=== PATIENT | female | born 1995 | race Hispanic/Latino ===

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

== ENCOUNTER 2018-07-27 23:54 | Emergency (ER) | payer MEDICAID | END 2018-07-28 04:45 | LOC: ED 23:54 | DX: M54.9 Dorsalgia, unspecified (principal); Z53.21 Procedure and treatment not carried out due to patient leaving prior to being seen by health care provider ==

== ENCOUNTER 2018-11-07 01:57 | Inpatient (IN) | payer MEDICAID ==
--- NOTE | 2018-11-07 02:32 | Emergency Department Report ---
ED General Adult HPI - General Chief complaint: Dyspnea/Respdistress Stated complaint: CHEST PAIN/SOB/DIZZINESS Time Seen by Provider: 11/07/18 02:30 Source: patient Mode of arrival: Ambulatory Limitations: No Limitations - History of Present Illness Initial comments: 22-year-old female with history of obesity, retention, ADHD with no prior respiratory issues. The patient presents with complaint of chest pain with cough. Patient states she had difficulty breathing since yesterday evening. Patient also describes shortness of breath with exertional activity. Patient denies any history of PE or DVT or any recent long trips. Patient denies any productive component to her cough. - Related Data Previous Rx's Medication Instructions Recorded Last Taken Type Fexofenadine (Nf) 180 mg PO QDAY #30 tablet 12/01/14 Unknown Rx Phenylephrine HCl [Nasal [place]] 30 ml NS QHS #1 spray 12/01/14 Unknown Rx Fluticasone [Flonase] 2 spray NS QDAY #1 bottle 02/04/15 Unknown Rx Loratadine [Claritin] 10 mg PO DAILY #30 tablet 02/04/15 Unknown Rx Prednisone [predniSONE 5 mg (6-Day 5 mg PO .TAPER #1 tab.ds.pk 02/04/15 Unknown Rx Pack, 21 Tabs)] Sulfamethoxazole/Trimethoprim 1 each PO BID #20 tablet 02/04/15 Unknown Rx [Bactrim DS TAB] Amoxicillin [Amoxicillin TAB] 875 mg PO BID #20 tablet 06/22/15 Unknown Rx Allergies Allergy/AdvReac Type Severity Reaction Status Date / Time strawberry AdvReac Rash Verified 06/22/15 09:00 ED Review of Systems ROS: Stated complaint: CHEST PAIN/SOB/DIZZINESS Other details as noted in HPI Constitutional: denies: chills, fever Eyes: denies: eye pain, eye discharge, vision change ENT: denies: ear pain, throat pain Respiratory: cough, SOB at rest Cardiovascular: denies: chest pain, palpitations Endocrine: no symptoms reported Gastrointestinal: denies: abdominal pain, nausea, diarrhea Genitourinary: denies: urgency, dysuria, discharge Musculoskeletal: denies: back pain, joint swelling, arthralgia Skin: denies: rash, lesions Neurological: denies: headache, weakness, paresthesias Psychiatric: denies: anxiety, depression Hematological/Lymphatic: denies: easy bleeding, easy bruising ED Past Medical Hx - Past Medical History Previous Medical History?: Yes Hx Psychiatric Treatment: Yes (ADD) Additional medical history: ADHD for which she takes Adderrall - Surgical History Past Surgical History?: No - Social History Smoking Status: Never Smoker Substance Use Type: None - Medications Home Medications: Home Medications Medication Instructions Recorded Confirmed Last Taken Type Fexofenadine (Nf) 180 mg PO QDAY #30 tablet 12/01/14 Unknown Rx Phenylephrine HCl [Nasal [place]] 30 ml NS QHS #1 spray 12/01/14 Unknown Rx Fluticasone [Flonase] 2 spray NS QDAY #1 bottle 02/04/15 Unknown Rx Loratadine [Claritin] 10 mg PO DAILY #30 tablet 02/04/15 Unknown Rx Prednisone [predniSONE 5 mg (6-Day 5 mg PO .TAPER #1 tab.ds.pk 02/04/15 Unknown Rx Pack, 21 Tabs)] Sulfamethoxazole/Trimethoprim 1 each PO BID #20 tablet 02/04/15 Unknown Rx [Bactrim DS TAB] Amoxicillin [Amoxicillin TAB] 875 mg PO BID #20 tablet 06/22/15 Unknown Rx ED Physical Exam - General Limitations: No Limitations General appearance: alert, other (moderate distress; mildly uncomfortable; obese) - Head Head exam: Present: atraumatic, normocephalic - Eye Eye exam: Present: normal appearance - ENT ENT exam: Present: mucous membranes moist - Neck Neck exam: Present: normal inspection - Respiratory Respiratory exam: Present: rales, other. Absent: respiratory distress - Cardiovascular Cardiovascular Exam: Present: regular rate, normal rhythm. Absent: systolic murmur, diastolic murmur, rubs, gallop - GI/Abdominal GI/Abdominal exam: Present: soft, normal bowel sounds - Extremities Exam Extremities exam: Present: normal inspection - Back Exam Back exam: Present: normal inspection - Neurological Exam Neurological exam: Present: alert, oriented X3 - Psychiatric Psychiatric exam: Present: normal affect, normal mood - Skin Skin exam: Present: warm, dry, intact, normal color. Absent: rash ED Course Vital Signs 11/07/18 11/07/18 11/07/18 02:06 02:44 03:08 Temperature 97.5 F L 99.9 F H Pulse Rate 122 H 101 H Pulse Rate [ 100 H Anterior Right Lower Lobe] Respiratory 26 H 19 Rate Respiratory 25 H Rate [Anterior Right Lower Lobe] Blood Pressure 153/90 Blood Pressure 151/91 [Left] O2 Sat by Pulse 88 89 Oximetry 11/07/18 05:05 Temperature Pulse Rate 119 H Pulse Rate [ Anterior Right Lower Lobe] Respiratory Rate Respiratory Rate [Anterior Right Lower Lobe] Blood Pressure 158/94 Blood Pressure [Left] O2 Sat by Pulse Oximetry ED Medical Decision Making - Lab Data Result diagrams: 11/07/18 02:46 11/07/18 02:46 - EKG Data Interpretation: no acute changes - Differential Diagnosis pulmonary embolism; electrolyte abnormal; anemia; pneumothorax; Critical Care Time: Yes Critical care time in (mins) excluding proc time.: 38 Critical care attestation.: If time is entered above; I have spent that time in minutes in the direct care of this critically ill patient, excluding procedure time. Critical care time includes time spent with direct bedside care; frequent reassessments, and physician consultation. Concern for potential decompensation of her respiratory system potential Circulatory System Collapse. ED Disposition Clinical Impression: NSTEMI (non-ST elevated myocardial infarction), Acute respiratory failure with hypoxia, CHF (congestive heart failure) Disposition: OP ADMIT IP TO THIS HOSP Is pt being admited?: Yes Does the pt Need Aspirin: No Condition: Fair Time of Disposition: 05:25
[2018-11-07] MEDS ORDERED: ATROVENT IH ONE (02:39)
[2018-11-07] MEDS ORDERED: PROVENTIL IH ONE (02:39)
[2018-11-07 03:03] LABS: Basophils # (Auto) 0.1 K/mm3 (0.0-0.1); Basophils % (Auto) 0.5 % (0.0-1.8); Eosinophils # (Auto) 0.1 K/mm3 (0.0-0.4); Eosinophils % (Auto) 0.7 % (0.0-4.3); Hematocrit 41.2 % (30.3-42.9); Hemoglobin 13.5 gm/dl (10.1-14.3); Lymphocytes # (Auto) 1.7 K/mm3 (1.2-5.4); Mean Corpuscular HGB Conc 33 % (30-34); Mean Corpuscular Hemoglobin 28 pg (28-32); Mean Corpuscular Volume 85 fl (79-97); Monocytes # (Auto) 1.5 K/mm3 (0.0-0.8); Monocytes % (Auto) 10.9 % (0.0-7.3); Platelet Count 235 K/mm3 (140-440); Red Blood Count 4.86 M/mm3 (3.65-5.03); Red Cell Distribution Width 12.8 % (13.2-15.2)
[2018-11-07 03:24] LABS: BUN/Creatinine Ratio 15; Blood Urea Nitrogen 12 mg/dL (7-17); Calcium 8.5 mg/dL (8.4-10.2); Hemolysis Index 384
[2018-11-07 04:09] LABS: Chol/HDL Ratio 3.92 %
--- NOTE | 2018-11-07 04:09 | XRay Report ---
CHEST 1 VIEW 11/07/2018 3:27 AM INDICATION / CLINICAL INFORMATION: Difficulty in breathing. COMPARISON: None available. FINDINGS: SUPPORT DEVICES: None. HEART / MEDIASTINUM: No significant abnormality. LUNGS / PLEURA: Opacities are noted along the right lung base. A trace right pleural effusion cannot be excluded. The lungs are otherwise clear. No pneumothorax. ADDITIONAL FINDINGS: No significant additional findings. IMPRESSION: Probable right basilar atelectasis with a possible trace right pleural effusion. Signer Name: Rodriguez Treviño MD Signed: 11/07/2018 4:05 AM Workstation Name: [id number]
[2018-11-07] MEDS ORDERED: LASIX IV ONE (04:49)
[2018-11-07] MEDS ORDERED: NITROSTAT SL ONE (04:49)
[2018-11-07] MEDS ORDERED: SODIUM CHLORIDE FLUSH SYRINGE 10 ML IV PRN (05:10)
[2018-11-07] MEDS ORDERED: MORPHINE IV PRN (05:10)
[2018-11-07] MEDS ORDERED: ZOFRAN IV PRN (05:10)
[2018-11-07] MEDS ORDERED: PROVENTIL IH PRN (05:10)
[2018-11-07] MEDS ORDERED: TYLENOL PO PRN (05:10)
[2018-11-07] MEDS ORDERED: APRESOLINE IV PRN (05:14)
[2018-11-07] MEDS ORDERED: KIONEX PO ONE (05:17)
[2018-11-07] MEDS ORDERED: HEPARIN 10,000 UNITS/10 ML IV ONE (05:19)
[2018-11-07] MEDS ORDERED: ECOTRIN PO ONE (05:25)
[2018-11-07] MEDS ORDERED: ROBITUSSIN PO PRN (05:31)
--- NOTE | 2018-11-07 05:33 | History and Physical Report ---
<DENY BEAR - Last Filed: 11/07/18 05:58> History of Present Illness Date of examination: 11/07/18 Date of admission: 11/07/2018 Chief complaint: Chest pain with nonproductive cough, difficulty in breathing History of present illness: 22-year-old female with history of mild intellectual disability, ADD who presents signs ED with complaints of chest pain, dry nonproductive cough, difficulty breathing and chest pain. Patient mother is present at bedside and has assisted in providing history. Patient states that he has been experiencing increased shortness of breath, dry nonproductive cough for the past 3 days. At first patient thought that she was experiencing shortness of breath due because she "walks a lot". Her symptoms continued to progressively worsen, and yesterday she started experiencing difficulty in breathing accompanied by chest pain. She states that her chest pain is substernal, left and right sided and non-radiating. She rates her pain 7/10 and describes it as tightness. On arrival to the ED she was found to be hypoxic with saturation of 86 on room air. Denies: Cardiac history, pulmonary disease, fever, nausea, vomiting, headache, recent trauma/injury, or recent fall Past History Past Medical History: other (ADD (has taken Adderall in the past but off Adderall for the past year) , mild intellectual disability) Past Surgical History: No surgical history Social history: lives with family Family history: no significant family history Medications and Allergies Allergies Allergy/AdvReac Type Severity Reaction Status Date / Time strawberry AdvReac Rash Verified 06/22/15 09:00 Home Medications Medication Instructions Recorded Confirmed Last Taken Type Fluticasone [Flonase] 2 spray NS QDAY #1 bottle 02/04/15 Unknown Rx Loratadine [Claritin] 10 mg PO DAILY #30 tablet 02/04/15 Unknown Rx Prednisone [predniSONE 5 mg (6-Day 5 mg PO .TAPER #1 tab.ds.pk 02/04/15 Unknown Rx Pack, 21 Tabs)] Benzonatate [Tessalon [place]] 100 mg PO Q8HR #30 capsule 11/09/18 Unknown Rx Verapamil [[place]] 80 mg PO Q8HR #90 tablet 11/09/18 Unknown Rx cefUROXime [Ceftin] 250 mg PO Q12H #14 tablet 07/23/19 Unknown Rx Active Meds: Active Medications Acetaminophen (Tylenol) 650 mg PO Q4H PRN PRN Reason: Pain MILD(1-3)/Fever >100.5/HIGH Albuterol (Proventil) 2.5 mg IH Q3HRT PRN PRN Reason: Shortness Of Breath Docusate Sodium (Colace) 100 mg PO BID [facility] Hydralazine HCl (Apresoline) 10 mg IV Q4HR PRN PRN Reason: Blood Pressure Heparin Sodium/Sodium Chloride (Heparin/ 0.45% Nacl-25,000 Unit/500 Ml) 25,000 unit in 500 mls @ 28.2 mls/hr IV TITR SEBASTIAN; Protocol Morphine Sulfate (Morphine) 2 mg IV Q4H PRN PRN Reason: Pain, Moderate (4-6) Ondansetron HCl (Zofran) 4 mg IV Q8H PRN PRN Reason: Nausea And Vomiting Oxycodone/Acetaminophen (Percocet 5/325) 1 tab PO Q6H PRN PRN Reason: Pain, Moderate (4-6) Sodium Chloride (Sodium Chloride Flush Syringe 10 Ml) 10 ml IV BID [facility] Sodium Chloride (Sodium Chloride Flush Syringe 10 Ml) 10 ml IV PRN PRN PRN Reason: LINE FLUSH Review of Systems Cardiovascular: lightheadedness, shortness of breath, dyspnea on exertion Respiratory: cough (dry nonproductive productive) Exam - Physical Exam Narrative exam: Physical exam General appearance: Present: Mild distress, anxious/worried, alert and oriented 3, obese young adult female - EENT Eyes: Present: PERRL, EOM intact ENT: hearing intact, normal dentition - Neck Neck: Present: supple, normal ROM - Respiratory Respiratory effort: Non-labored Respiratory: bilateral: diminished (bases) - Cardiovascular Heart rate:119 (bpm) Rhythm: regular Heart Sounds: Present: S1 & S2. Absent: rub, click - Extremities Extremities: no ischemia, pulses intact, - Peripheral Assessment Peripheral Pulses: within normal limits - Abdominal General gastrointestinal: Obese, soft, non-tender, normal bowel sounds - Integumentary Integumentary: Present: warm, dry - Musculoskeletal Musculoskeletal: Able to move all extremities - Psychiatric Psychiatric: Anxious/worried cooperative - Constitutional Vitals: Temp Pulse Resp BP Pulse Ox 99.9 F H 119 H 25 H 158/94 89 11/07/18 02:44 07/21/19 05:05 11/07/18 03:08 11/07/18 05:05 11/07/18 02:44 Results - Labs CBC & Chem 7: 11/07/18 02:46 11/07/18 02:46 Labs: Laboratory Last Values WBC 13.4 K/mm3 (4.5-11.0) H 11/07/18 02:46 RBC 4.86 M/mm3 (3.65-5.03) 11/07/18 02:46 Hgb 13.5 gm/dl (10.1-14.3) 11/07/18 02:46 Hct 41.2 % (30.3-42.9) 11/07/18 02:46 MCV 85 fl (79-97) 11/07/18 02:46 MCH 28 pg (28-32) 11/07/18 02:46 MCHC 33 % (30-34) 11/07/18 02:46 RDW 12.8 % (13.2-15.2) L 11/07/18 02:46 Plt Count 235 K/mm3 (140-440) 11/07/18 02:46 Lymph % (Auto) 13.0 % (13.4-35.0) L 11/07/18 02:46 [place] % (Auto) 10.9 % (0.0-7.3) H 11/07/18 02:46 Eos % (Auto) 0.7 % (0.0-4.3) 11/07/18 02:46 Baso % (Auto) 0.5 % (0.0-1.8) 11/07/18 02:46 Lymph # 1.7 K/mm3 (1.2-5.4) 11/07/18 02:46 [place] # 1.5 K/mm3 (0.0-0.8) H 11/07/18 02:46 Eos # 0.1 K/mm3 (0.0-0.4) 11/07/18 02:46 Baso # 0.1 K/mm3 (0.0-0.1) 11/07/18 02:46 Seg Neutrophils % 74.9 % (40.0-70.0) H 11/07/18 02:46 Seg Neutrophils # 10.0 K/mm3 (1.8-7.7) H 11/07/18 02:46 483.74 ng/mlDDU (0-234) H 11/07/18 02:46 POC ABG pH 7.421 (7.35-7.45) 11/07/18 03:02 POC ABG pCO2 31.1 (35-45) L 11/07/18 03:02 POC ABG pO2 58 (80-105) L 11/07/18 03:02 POC ABG HCO3 20.2 (22-26 mml/L) 11/07/18 03:02 POC ABG Total CO2 21 (23-27mmol/L) 11/07/18 03:02 POC ABG O2 Sat 91 11/07/18 03:02 POC ABG Base Excess -4 ((-2) - (+3)mmol/L) 11/07/18 03:02 21 % 11/07/18 03:02 Sodium 137 mmol/L (137-145) 11/07/18 02:46 Potassium 5.4 mmol/L (3.6-5.0) H 11/07/18 02:46 Chloride 101.0 mmol/L (98-107) 11/07/18 02:46 Carbon Dioxide 21 mmol/L (22-30) L 11/07/18 02:46 20 mmol/L 11/07/18 02:46 BUN 12 mg/dL (7-17) 11/07/18 02:46 0.8 mg/dL (0.7-1.2) 11/07/18 02:46 Estimated GFR > 60 ml/min 11/07/18 02:46 15 % 11/07/18 02:46 Glucose 106 mg/dL (65-100) H 11/07/18 02:46 Calcium 8.5 mg/dL (8.4-10.2) 11/07/18 02:46 272 units/L (30-135) H 11/07/18 02:46 0.048 ng/mL (0.00-0.029) H 11/07/18 02:46 NT-Pro-B Natriuret Pep 6870 pg/mL (0-450) H 11/07/18 02:46 Triglycerides 149 mg/dL (2-149) 11/07/18 02:46 Cholesterol 149 mg/dL (50-199) 11/07/18 02:46 97 mg/dL (50-130) 11/07/18 02:46 38 mg/dL (40-59) L 11/07/18 02:46 3.92 % 11/07/18 02:46 HCG, Qual Negative (Negative) 11/07/18 02:46 - Imaging and Cardiology Chest x-ray: report reviewed ( Opacities are noted along the right lung base. A trace right pleural effusion ), image reviewed Assessment and Plan Assessment and plan: 22-year-old female with history of mild intellectual disability, ADD who presents signs ED with complaints of progressively worsening dry nonproducti ve cough, difficulty breathing and chest pain for the past 3 days. 1. Suspicion of pulmonary embolism -D-dimer elevated at 483.74 -Difficulty breathing -Hypoxic on room air -VQ scan pending, if negative may consider chest pain work up (pt has low cardiac risk factors) -CT angiogram chest unavailable at this time -Prophylactically started on heparin drip 2. Acute hypoxic respiratory failure -Likely secondary to #1 -ABG 7.42/31.1/58/20.2 -Saturation of mid to high 80s on air -Denies supplemental oxygen use at baseline -Continue supplemental oxygen, wean as tolerated 3. Leukocytosis -?? Lower respiratory infection -Low-grade temp 99.9 -WBC 13.4 -Dry nonproductive cough -Guaifenesin when necessary -CXR showed opacities along the right lung base and trace right pleural effusion -Start empiric IV Levaquin -Monitor CBC 4. Hyperkalemia -Potassium on admission 5.4 -Ordered Kayexalate -Monitor electrolytes 5. History of ADHD -Previously on Adderall, but has not taken in over one year 6. History of mild intellectual disability 7. DVT PPX -On heparin gtt Advance Directives: No VTE prophylaxis?: Chemical Plan of care discussed with patient/family: Yes <PROSPER FLEMING - Last Filed: 11/09/18 22:01> History of Present Illness Date of admission: 11/07/18 06:30 Medications and Allergies Active Meds: Active Medications Acetaminophen (Tylenol) 650 mg PO Q4H PRN PRN Reason: Pain MILD(1-3)/Fever >100.5/HIGH Albuterol (Proventil) 2.5 mg IH Q3HRT PRN PRN Reason: Shortness Of Breath Docusate Sodium (Colace) 100 mg PO BID [facility] Guaifenesin (Robitussin) 200 mg PO Q4H PRN PRN Reason: Cough Hydralazine HCl (Apresoline) 10 mg IV Q4HR PRN PRN Reason: Blood Pressure Heparin Sodium/Sodium Chloride (Heparin/ 0.45% Nacl-25,000 Unit/500 Ml) 25,000 unit in 500 mls @ 27 mls/hr IV TITR [facility]ST[facility]; Protocol Levofloxacin/Dextrose (Levaquin 500mg/100ml) 500 mg in 100 mls @ 100 mls/hr IV Q24HR SEBASTIAN; Protocol Morphine Sulfate (Morphine) 2 mg IV Q4H PRN PRN Reason: Pain, Moderate (4-6) Ondansetron HCl (Zofran) 4 mg IV Q8H PRN PRN Reason: Nausea And Vomiting Oxycodone/Acetaminophen (Percocet 5/325) 1 tab PO Q6H PRN PRN Reason: Pain, Moderate (4-6) Sodium Chloride (Sodium Chloride Flush Syringe 10 Ml) 10 ml IV BID [facility] Sodium Chloride (Sodium Chloride Flush Syringe 10 Ml) 10 ml IV PRN PRN PRN Reason: LINE FLUSH Exam - Constitutional Vitals: Temp Pulse Resp BP Pulse Ox 99.9 F H 119 H 25 H 158/94 89 11/07/18 02:44 11/07/18 05:05 11/07/18 03:08 11/07/18 05:05 11/07/18 02:44 Results - Labs CBC & Chem 7: 11/08/18 04:29 11/08/18 04:29 Labs: Laboratory Last Values WBC 13.4 K/mm3 (4.5-11.0) H 11/07/18 02:46 RBC 4.86 M/mm3 (3.65-5.03) 11/07/18 02:46 Hgb 13.5 gm/dl (10.1-14.3) 11/07/18 02:46 Hct 41.2 % (30.3-42.9) 11/07/18 02:46 MCV 85 fl (79-97) 11/07/18 02:46 MCH 28 pg (28-32) 11/07/18 02:46 MCHC 33 % (30-34) 11/07/18 02:46 RDW 12.8 % (13.2-15.2) L 11/07/18 02:46 Plt Count 235 K/mm3 (140-440) 11/07/18 02:46 Lymph % (Auto) 13.0 % (13.4-35.0) L 11/07/18 02:46 [place] % (Auto) 10.9 % (0.0-7.3) H 11/07/18 02:46 Eos % (Auto) 0.7 % (0.0-4.3) 11/07/18 02:46 Baso % (Auto) 0.5 % (0.0-1.8) 11/07/18 02:46 Lymph # 1.7 K/mm3 (1.2-5.4) 11/07/18 02:46 [place] # 1.5 K/mm3 (0.0-0.8) H 11/07/18 02:46 Eos # 0.1 K/mm3 (0.0-0.4) 11/07/18 02:46 Baso # 0.1 K/mm3 (0.0-0.1) 11/07/18 02:46 Seg Neutrophils % 74.9 % (40.0-70.0) H 11/07/18 02:46 Seg Neutrophils # 10.0 K/mm3 (1.8-7.7) H 11/07/18 02:46 483.74 ng/mlDDU (0-234) H 11/07/18 02:46 POC ABG pH 7.421 (7.35-7.45) 11/07/18 03:02 POC ABG pCO2 31.1 (35-45) L 11/07/18 03:02 POC ABG pO2 58 (80-105) L 11/07/18 03:02 POC ABG HCO3 20.2 (22-26 mml/L) 11/07/18 03:02 POC ABG Total CO2 21 (23-27mmol/L) 11/07/18 03:02 POC ABG O2 Sat 91 11/07/18 03:02 POC ABG Base Excess -4 ((-2) - (+3)mmol/L) 11/07/18 03:02 21 % 11/07/18 03:02 Sodium 137 mmol/L (137-145) 11/07/18 02:46 Potassium 5.4 mmol/L (3.6-5.0) H 11/07/18 02:46 Chloride 101.0 mmol/L (98-107) 11/07/18 02:46 Carbon Dioxide 21 mmol/L (22-30) L 11/07/18 02:46 20 mmol/L 11/07/18 02:46 BUN 12 mg/dL (7-17) 11/07/18 02:46 0.8 mg/dL (0.7-1.2) 11/07/18 02:46 Estimated GFR > 60 ml/min 11/07/18 02:46 15 % 11/07/18 02:46 Glucose 106 mg/dL (65-100) H 11/07/18 02:46 Calcium 8.5 mg/dL (8.4-10.2) 11/07/18 02:46 272 units/L (30-135) H 11/07/18 02:46 0.048 ng/mL (0.00-0.029) H 11/07/18 02:46 NT-Pro-B Natriuret Pep 6870 pg/mL (0-450) H 11/07/18 02:46 Triglycerides 149 mg/dL (2-149) 11/07/18 02:46 Cholesterol 149 mg/dL (50-199) 11/07/18 02:46 97 mg/dL (50-130) 11/07/18 02:46 38 mg/dL (40-59) L 11/07/18 02:46 3.92 % 11/07/18 02:46 HCG, Qual Negative (Negative) 11/07/18 02:46 Assessment and Plan Assessment and plan: 22 year old woman with ADHD , DD is being evaluateed for non-productive cough and chest pain in the high anterior chest. Her v/q is negative, elevation of troponin. Check echo and add cardiology consult. Elevated blood pressure, monitor.
[2018-11-07] MEDS ORDERED: HEPARIN/ 0.45% NACL-25,000 UNIT/500 ML 25,000 UNIT/500 ML BAG IV SCH (06:00)
--- NOTE | 2018-11-07 06:35 | Nuclear Medicine Report ---
NUCLEAR MEDICINE VENTILATION/PERFUSION LUNG SCAN INDICATION: shortness of breath with elevated d dimer. TECHNIQUE: 18.99 mCi of Xe-133 were given by inhalation. 4.0 mCi of Tc-99m MAA were given by IV. COMPARISON: Chest radiograph dated 11/07/2018. FINDINGS: VENTILATION: No significant ventilation defects. PERFUSION: No significant perfusion defects. ADDITIONAL FINDINGS: None. IMPRESSION: Low probability for pulmonary embolism. Signer Name: Rodriguez Treviño MD Signed: 11/07/2018 6:31 AM Workstation Name: [id number]
[2018-11-07 07:23] LABS: Bilirubin,Urine NEG (Negative); Blood,Urine NEG (Negative); Color,Urine Straw (Yellow); Protein,Urine <15 mg/dL mg/dL (Negative); Urobilinogen,Urine < 2.0 mg/dL (<2.0); WBC,Urine < 1.0 /HPF (0.0-6.0)
[2018-11-07 07:28] LABS: Hematocrit 42.9 % (30.3-42.9)
[2018-11-07 07:34] LABS: INR 1.09 (0.87-1.13)
[2018-11-07 07:35] LABS: Partial Thromboplastin Time 31.7 Sec. (24.2-36.6)
[2018-11-07 08:03] LABS: RBC,Urine < 1.0 /HPF (0.0-6.0)
[2018-11-07] MEDS: PERCOCET 5/325 PO PRN ×2 (08:45→17:05)
[2018-11-07] MEDS: LEVAQUIN 500MG/100ML 500 MG/100 ML BAG IV SCH (10:43)
[2018-11-07] MEDS: COLACE PO SCH ×2 (10:47→23:00)
[2018-11-07] MEDS: SODIUM CHLORIDE FLUSH SYRINGE 10 ML IV SCH ×2 (10:47→23:06)
--- NOTE | 2018-11-07 11:27 | Progress Note ---
Assessment and Plan Assessment and plan: --Acute hypoxic respiratory failure; Oxygen titrated O2 sats more than 90% Possible community, continue IV antibiotics, follow cultures Supportive care --Possible community-acquired pneumonia; IV antibiotics Follow cultures --Leukocytosis; probably secondary to pneumonia Closely monitor --Non-ST elevation; nonspecific elevation of cardiac enzymes Patient is on heparin drip, follow cardiology evaluation Follow-up echocardiogram --Elevated d-dimer ; VQ scan negative for PE Lower extremity venous Doppler to rule out DVT --Morbidly obese; great reduction in medically stable --Mild developmental delay; supportive care --DVT Prophylaxis; heparin drip Closely monitor the patient and adjust management as needed History Interval history: Patient seen and examined medical records reviewed Patient admitted with shortness of breath chest pain cough Patient is on IV antibiotics, Patient is comfortable not in acute distress Vital signs noted Hospitalist Physical - Constitutional Vitals: Temp Pulse Resp BP Pulse Ox 99.9 F H 110 H 25 H 126/90 98 11/07/18 02:44 11/07/18 07:00 11/07/18 07:00 11/07/18 07:00 11/07/18 07:00 General appearance: Present: no acute distress, well-nourished, obese - EENT Eyes: Present: PERRL, EOM intact - Neck Neck: Present: supple, normal ROM - Respiratory Respiratory effort: normal Respiratory: bilateral: diminished, rhonchi, negative: rales, wheezing - Cardiovascular Rhythm: regular Heart Sounds: Present: S1 & S2 - Extremities Extremities: no ischemia, No edema - Abdominal General gastrointestinal: soft, non-tender, non-distended, normal bowel sounds - Integumentary Integumentary: Present: clear, warm - Psychiatric Psychiatric: other - Neurologic Neurologic: moves all extremities Results - Labs CBC & Chem 7: 11/07/18 06:34 11/07/18 02:46 Labs: Laboratory Last Values WBC 13.4 K/mm3 (4.5-11.0) H 11/07/18 02:46 RBC 4.86 M/mm3 (3.65-5.03) 11/07/18 02:46 Hgb 14.0 gm/dl (10.1-14.3) 11/07/18 06:34 Hct 42.9 % (30.3-42.9) 11/07/18 06:34 MCV 85 fl (79-97) 11/07/18 02:46 MCH 28 pg (28-32) 11/07/18 02:46 MCHC 33 % (30-34) 11/07/18 02:46 RDW 12.8 % (13.2-15.2) L 11/07/18 02:46 Plt Count 242 K/mm3 (140-440) 11/07/18 06:34 Lymph % (Auto) 13.0 % (13.4-35.0) L 11/07/18 02:46 [place] % (Auto) 10.9 % (0.0-7.3) H 11/07/18 02:46 Eos % (Auto) 0.7 % (0.0-4.3) 11/07/18 02:46 Baso % (Auto) 0.5 % (0.0-1.8) 11/07/18 02:46 Lymph # 1.7 K/mm3 (1.2-5.4) 11/07/18 02:46 [place] # 1.5 K/mm3 (0.0-0.8) H 11/07/18 02:46 Eos # 0.1 K/mm3 (0.0-0.4) 11/07/18 02:46 Baso # 0.1 K/mm3 (0.0-0.1) 11/07/18 02:46 Seg Neutrophils % 74.9 % (40.0-70.0) H 11/07/18 02:46 Seg Neutrophils # 10.0 K/mm3 (1.8-7.7) H 11/07/18 02:46 PT 13.8 Sec. (12.2-14.9) 11/07/18 06:34 INR 1.09 (0.87-1.13) 11/07/18 06:34 APTT 31.7 Sec. (24.2-36.6) 11/07/18 06:34 483.74 ng/mlDDU (0-234) H 11/07/18 02:46 POC ABG pH 7.421 (7.35-7.45) 11/07/18 03:02 POC ABG pCO2 31.1 (35-45) L 11/07/18 03:02 POC ABG pO2 58 (80-105) L 11/07/18 03:02 POC ABG HCO3 20.2 (22-26 mml/L) 11/07/18 03:02 POC ABG Total CO2 21 (23-27mmol/L) 11/07/18 03:02 POC ABG O2 Sat 91 11/07/18 03:02 POC ABG Base Excess -4 ((-2) - (+3)mmol/L) 11/07/18 03:02 21 % 11/07/18 03:02 Sodium 137 mmol/L (137-145) 11/07/18 02:46 Potassium 5.4 mmol/L (3.6-5.0) H 11/07/18 02:46 Chloride 101.0 mmol/L (98-107) 11/07/18 02:46 Carbon Dioxide 21 mmol/L (22-30) L 11/07/18 02:46 20 mmol/L 11/07/18 02:46 BUN 12 mg/dL (7-17) 11/07/18 02:46 0.8 mg/dL (0.7-1.2) 11/07/18 02:46 Estimated GFR > 60 ml/min 11/07/18 02:46 15 % 11/07/18 02:46 Glucose 106 mg/dL (65-100) H 11/07/18 02:46 Calcium 8.5 mg/dL (8.4-10.2) 11/07/18 02:46 272 units/L (30-135) H 11/07/18 02:46 0.047 ng/mL (0.00-0.029) H 11/07/18 06:34 NT-Pro-B Natriuret Pep 6870 pg/mL (0-450) H 11/07/18 02:46 Triglycerides 149 mg/dL (2-149) 11/07/18 02:46 Cholesterol 149 mg/dL (50-199) 11/07/18 02:46 97 mg/dL (50-130) 11/07/18 02:46 38 mg/dL (40-59) L 11/07/18 02:46 3.92 % 11/07/18 02:46 HCG, Qual Negative (Negative) 11/07/18 02:46 Straw (Yellow) 11/07/18 06:45 Clear (Clear) 11/07/18 06:45 5.0 (5.0-7.0) 11/07/18 06:45 Ur Specific [place] 1.004 (1.003-1.030) 11/07/18 06:45 <15 mg/dl mg/dL (Negative) 11/07/18 06:45 Neg mg/dL (Negative) 11/07/18 06:45 Neg mg/dL (Negative) 11/07/18 06:45 Neg (Negative) 11/07/18 06:45 Neg (Negative) 11/07/18 06:45 Neg (Negative) 11/07/18 06:45 < 2.0 mg/dL (<2.0) 11/07/18 06:45 Ur Leukocyte Esterase Neg (Negative) 11/07/18 06:45 < 1.0 /HPF (0.0-6.0) 11/07/18 06:45 < 1.0 /HPF (0.0-6.0) 11/07/18 06:45 U Epithel Cells (Auto) 1.0 /HPF (0-13.0) 11/07/18 06:45 Active Medications - Current Medications Current Medications: Generic Name Dose Route Start Last Admin Trade Name Freq PRN Reason Stop Dose Admin Acetaminophen 650 mg 11/07/18 05:10 Tylenol PO Q4H PRN Pain MILD(1-3)/Fever >100.5/HIGH Albuterol 2.5 mg 11/07/18 05:10 Proventil IH Q3HRT PRN Shortness Of Breath Docusate Sodium 100 mg 11/07/18 10:00 11/07/18 10:47 Colace PO Not Given BID [facility] Guaifenesin 200 mg 11/07/18 05:31 Robitussin PO Q4H PRN Cough Hydralazine HCl 10 mg 11/07/18 05:14 Apresoline IV Q4HR PRN Blood Pressure Heparin Sodium/Sodium Chloride 25,000 unit in 500 mls @ 27 mls/hr 11/07/18 06:00 11/07/18 07:06 Heparin/ 0.45% Nacl-25,000 Unit/500 Ml IV 1,350 units/hr TITR SEBASTIAN 27 mls/hr Administration Protocol 1,350 UNITS/HR Levofloxacin/Dextrose 500 mg in 100 mls @ 100 mls/hr 11/07/18 10:00 11/07/18 10:43 Levaquin 500mg/100ml IV 100 mls/hr Q24HR SEBASTIAN Administration Protocol Morphine Sulfate 2 mg 11/07/18 05:10 Morphine IV Q4H PRN Pain, Moderate (4-6) Ondansetron HCl 4 mg 11/07/18 05:10 Zofran IV Q8H PRN Nausea And Vomiting Oxycodone/Acetaminophen 1 tab 11/07/18 05:10 11/07/18 08:45 Percocet 5/325 PO 1 tab Q6H PRN Administration Pain, Moderate (4-6) Sodium Chloride 10 ml 11/07/18 10:00 11/07/18 10:47 Sodium Chloride Flush Syringe 10 Ml IV 10 ml BID SEBASTIAN Administration Sodium Chloride 10 ml 11/07/18 05:10 Sodium Chloride Flush Syringe 10 Ml IV PRN PRN LINE FLUSH
--- NOTE | 2018-11-07 14:15 | Vascular Lab Report ---
DUPLEX DOPPLER LOWER EXTREMITY VEINS, BILATERAL INDICATION / CLINICAL INFORMATION: elevated d dimers,r/o DVT. Shortness of breath TECHNIQUE: Duplex doppler imaging was performed through the veins of both lower extremities using venous poppy eileen and other maneuvers. COMPARISON: None available. FINDINGS: Right Common Femoral vein: Negative. Right Femoral vein: Negative. Right Popliteal vein: Negative. Right Calf veins: Negative. Left Common Femoral vein: Negative. Left Femoral vein: Negative. Left Popliteal vein: Negative. Left Calf veins: Negative. Additional findings: None. IMPRESSION: 1. No sonographic evidence for DVT in either lower extremity. Signer Name: Carissa Banks MD Signed: 11/07/2018 2:10 PM Workstation Name: [id number]
--- NOTE | 2018-11-07 15:24 | Consultation ---
History of Present Illness Consult date: 11/07/18 Consult reason: shortness of breath History of present illness: The patient is a 22-year-old woman admitted to the hospital with complaints of shortness of breath, chest pain and was hypoxemic 88% on room air. Blood pressure was also elevated at 153 systolic on presentation. She denies any prior cardiac history. There is no palpitations or syncope. There is no lower extremity edema. On physical exam, the patient is obese, has a resting sinus tachycardia, and a 3/6 systolic ejection murmur at the left sternal border. EKG is sinus tachycardia 101, left axis deviation, left ventricular hypertrophy by voltage. Chest x-ray reveals cardiomegaly, with haziness in the right lower lobe. No interstitial edema and no heart failure. A ventilation perfusion scan of the lungs was reported low probability. Echocardiogram showed normal left ventricle systolic function, ejection fraction 60-65%, with mild to moderate concentric left ventricular hypertrophy. Despite absence of severe hypertrophy, there was evident systolic anterior motion of the mitral valve leaflets, with associated LV outflow tract peak gradient of 33 and mean gradient of 17. In addition, there was at least moderate mitral regurgitation. There was no Valsalva maneuver performed for further assessment of the outflow tract obstruction. Past History Past Medical History: other (ADD (has taken Adderall in the past but off Adderall for the past year) , mild intellectual disability) Past Surgical History: No surgical history Social history: lives with family Family history: no significant family history Medications and Allergies Allergies Allergy/AdvReac Type Severity Reaction Status Date / Time strawberry AdvReac Rash Verified 06/22/15 09:00 Home Medications Medication Instructions Recorded Confirmed Last Taken Type Fexofenadine (Nf) 180 mg PO QDAY #30 tablet 12/01/14 Unknown Rx Phenylephrine HCl [Nasal [place]] 30 ml NS QHS #1 spray 12/01/14 Unknown Rx Fluticasone [Flonase] 2 spray NS QDAY #1 bottle 02/04/15 Unknown Rx Loratadine [Claritin] 10 mg PO DAILY #30 tablet 02/04/15 Unknown Rx Prednisone [predniSONE 5 mg (6-Day 5 mg PO .TAPER #1 tab.ds.pk 02/04/15 Unknown Rx Pack, 21 Tabs)] Sulfamethoxazole/Trimethoprim 1 each PO BID #20 tablet 02/04/15 Unknown Rx [Bactrim DS TAB] Amoxicillin [Amoxicillin TAB] 875 mg PO BID #20 tablet 06/22/15 Unknown Rx Active Meds: Active Medications Acetaminophen (Tylenol) 650 mg PO Q4H PRN PRN Reason: Pain MILD(1-3)/Fever >100.5/HIGH Albuterol (Proventil) 2.5 mg IH Q3HRT PRN PRN Reason: Shortness Of Breath Docusate Sodium (Colace) 100 mg PO BID [facility] Last Admin: 11/07/18 10:47 Dose: Not Given Documented by: Guaifenesin (Robitussin) 200 mg PO Q4H PRN PRN Reason: Cough Hydralazine HCl (Apresoline) 10 mg IV Q4HR PRN PRN Reason: Blood Pressure Heparin Sodium/Sodium Chloride (Heparin/ 0.45% Nacl-25,000 Unit/500 Ml) 25,000 unit in 500 mls @ 27 mls/hr IV TITR [facility]; Protocol Last Admin: 11/07/18 07:06 Dose: 1,350 units/hr, 27 mls/hr Documented by: Levofloxacin/Dextrose (Levaquin 500mg/100ml) 500 mg in 100 mls @ 100 mls/hr IV Q24HR [facility]; Protocol Last Admin: 11/07/18 10:43 Dose: 100 mls/hr Documented by: Morphine Sulfate (Morphine) 2 mg IV Q4H PRN PRN Reason: Pain, Moderate (4-6) Ondansetron HCl (Zofran) 4 mg IV Q8H PRN PRN Reason: Nausea And Vomiting Oxycodone/Acetaminophen (Percocet 5/325) 1 tab PO Q6H PRN PRN Reason: Pain, Moderate (4-6) Last Admin: 11/07/18 08:45 Dose: 1 tab Documented by: Sodium Chloride (Sodium Chloride Flush Syringe 10 Ml) 10 ml IV BID [facility] Last Admin: 11/07/18 10:47 Dose: 10 ml Documented by: Sodium Chloride (Sodium Chloride Flush Syringe 10 Ml) 10 ml IV PRN PRN PRN Reason: LINE FLUSH Review of Systems Cardiovascular: chest pain, shortness of breath, no orthopnea, no palpitations, no rapid/irregular heart beat, no edema, no syncope, no lightheadedness Physical Examination Vital Signs Temp Pulse Resp BP Pulse Ox 97.5 F L 122 H 26 H 153/90 88 11/07/18 02:06 11/07/18 02:06 11/07/18 02:06 11/07/18 02:06 11/07/18 02:06 General appearance: no acute distress, obese HEENT: Positive: PERRL Neck: Positive: neck supple Cardiac: Positive: Reg Rate and Rhythm, Systolic Murmur Lungs: Positive: clear to auscultation Neuro: Positive: Grossly Intact Abdomen: Positive: Soft Female genitourinary: deferred Skin: Positive: Clear Extremities: Absent: edema Results 11/07/18 06:34 11/07/18 02:46 Coagulation 11/07/18 Range/Units 06:34 PT 13.8 (12.2-14.9) Sec. INR 1.09 (0.87-1.13) APTT 31.7 (24.2-36.6) Sec. Lipids 11/07/18 Range/Units 02:46 Triglycerides 149 (2-149) mg/dL Cholesterol 149 (50-199) mg/dL HDL Cholesterol 38 L (40-59) mg/dL Cholesterol/HDL Ratio 3.92 % CBC 11/07/18 11/07/18 Range/Units 02:46 06:34 WBC 13.4 H (4.5-11.0) K/mm3 RBC 4.86 (3.65-5.03) M/mm3 Hgb 13.5 14.0 (10.1-14.3) gm/dl Hct 41.2 42.9 (30.3-42.9) % Plt Count 235 242 (140-440) K/mm3 Lymph # 1.7 (1.2-5.4) K/mm3 [place] # 1.5 H (0.0-0.8) K/mm3 Eos # 0.1 (0.0-0.4) K/mm3 Baso # 0.1 (0.0-0.1) K/mm3 Comprehensive Metabolic Panel 11/07/18 Range/Units 02:46 Sodium 137 (137-145) mmol/L Potassium 5.4 H (3.6-5.0) mmol/L Chloride 101.0 (98-107) mmol/L Carbon Dioxide 21 L (22-30) mmol/L BUN 12 (7-17) mg/dL Creatinine 0.8 (0.7-1.2) mg/dL Glucose 106 H (65-100) mg/dL Calcium 8.5 (8.4-10.2) mg/dL EKG interpretations - Telemetry EKG Rhythm: Sinus Tachycardia Assessment and Plan - Patient Problems (1) Shortness of breath Current Visit: Yes Status: Acute Plan to address problem: Patient's echocardiogram shows normal left ventricular systolic function, but mild to moderate left ventricular hypertrophy with systolic anterior motion of the mitral valve, causing a moderate degree of left ventricle outflow gradient, and at least a moderate degree of mitral regurgitation. A BETINA will be indicated for further assessment of the mitral valve pathology. (2) Hypertension Current Visit: Yes Status: Acute Plan to address problem: We will treat hypertension with negative inotropic agents, verapamil and metoprolol as tolerated.
[2018-11-07] MEDS: CALAN PO SCH ×2 (19:01→23:00)
[2018-11-07] MEDS: LOVENOX SUB-Q SCH (23:00)
[2018-11-08] MEDS: CALAN PO SCH ×3 (05:24→22:40)
[2018-11-08 05:35] LABS: Basophils # (Auto) 0.1 K/mm3 (0.0-0.1); Eosinophils # (Auto) 0.2 K/mm3 (0.0-0.4); Eosinophils % (Auto) 1.5 % (0.0-4.3); Monocytes # (Auto) 1.2 K/mm3 (0.0-0.8); Monocytes % (Auto) 12.3 % (0.0-7.3)
[2018-11-08 06:01] LABS: BUN/Creatinine Ratio 10; Blood Urea Nitrogen 6 mg/dL (7-17); Calcium 8.3 mg/dL (8.4-10.2); Hemolysis Index 4
[2018-11-08 06:26] LABS: Hematocrit 40.6 % (30.3-42.9); Hemoglobin 13.3 gm/dl (10.1-14.3); Mean Corpuscular Hemoglobin 28 pg (28-32); Mean Corpuscular Volume 85 fl (79-97); Red Blood Count 4.79 M/mm3 (3.65-5.03)
[2018-11-08 06:27] LABS: Basophils % (Auto) 0.8 % (0.0-1.8); Lymphocytes # (Auto) 1.8 K/mm3 (1.2-5.4); Lymphocytes % (Auto) 17.7 % (13.4-35.0); Mean Corpuscular HGB Conc 33 % (30-34); Platelet Count 218 K/mm3 (140-440); Red Cell Distribution Width 13.1 % (13.2-15.2)
[2018-11-08] MEDS ORDERED: K-DUR PO NR (09:03)
--- NOTE | 2018-11-08 09:09 | Progress Note ---
Assessment and Plan Assessment and plan: --Hypokalemia; replace with KCl Monitor electrolytes --Mitral regurgitation; on echocardiogram Cardiology following, recommend BETINA --Acute hypoxic respiratory failure; Oxygen titrated O2 sats more than 90% Possible community, continue IV antibiotics, follow cultures --Sepsis secondary to community-acquired pneumonia; Leukocytosis, tachycardia, tachypnea, pneumonia --Non-ST elevation; nonspecific elevation of cardiac enzymes Identification evaluation noted and appreciated --Elevated d-dimer ; VQ scan negative for PE Lower extremity venous Doppler neg DVT --Morbidly obese; great reduction in medically stable --Mild developmental delay; supportive care --DVT Prophylaxis; heparin drip Closely monitor the patient and adjust management as needed Disposition; discharged in stable History Interval history: Patient seen and examined medical records reviewed No new events reported by the nursing Feels better no new complaints Cardiology planning BETINA Hospitalist Physical - Constitutional Vitals: Temp Pulse Resp BP Pulse Ox 97.6 F 96 H 16 124/55 93 11/08/18 03:16 11/08/18 05:24 11/08/18 03:16 11/08/18 05:24 11/08/18 03:16 General appearance: Present: no acute distress, well-nourished, obese - EENT Eyes: Present: PERRL, EOM intact - Neck Neck: Present: supple, normal ROM - Respiratory Respiratory effort: normal Respiratory: bilateral: diminished, negative: rales, rhonchi, wheezing - Cardiovascular Rhythm: regular Heart Sounds: Present: S1 & S2 - Extremities Extremities: no ischemia, No edema - Abdominal General gastrointestinal: soft, non-tender, non-distended, normal bowel sounds - Integumentary Integumentary: Present: clear, warm - Psychiatric Psychiatric: appropriate mood/affect, cooperative - Neurologic Neurologic: moves all extremities Results - Labs CBC & Chem 7: 11/08/18 04:29 11/08/18 04:29 Labs: Laboratory Last Values WBC 10.1 K/mm3 (4.5-11.0) 11/08/18 04:29 RBC 4.79 M/mm3 (3.65-5.03) 11/08/18 04:29 Hgb 13.3 gm/dl (10.1-14.3) 11/08/18 04:29 Hct 40.6 % (30.3-42.9) 11/08/18 04:29 MCV 85 fl (79-97) 11/08/18 04:29 MCH 28 pg (28-32) 11/08/18 04:29 MCHC 33 % (30-34) 11/08/18 04:29 RDW 13.1 % (13.2-15.2) L 11/08/18 04:29 Plt Count 218 K/mm3 (140-440) 11/08/18 04:29 Lymph % (Auto) 17.7 % (13.4-35.0) 11/08/18 04:29 [place] % (Auto) 12.3 % (0.0-7.3) H 11/08/18 04:29 Eos % (Auto) 1.5 % (0.0-4.3) 11/08/18 04:29 Baso % (Auto) 0.8 % (0.0-1.8) 11/08/18 04:29 Lymph # 1.8 K/mm3 (1.2-5.4) 11/08/18 04:29 [place] # 1.2 K/mm3 (0.0-0.8) H 11/08/18 04:29 Eos # 0.2 K/mm3 (0.0-0.4) 11/08/18 04:29 Baso # 0.1 K/mm3 (0.0-0.1) 11/08/18 04:29 Seg Neutrophils % 67.7 % (40.0-70.0) 11/08/18 04:29 Seg Neutrophils # 6.9 K/mm3 (1.8-7.7) 11/08/18 04:29 PT 13.8 Sec. (12.2-14.9) 11/07/18 06:34 INR 1.09 (0.87-1.13) 11/07/18 06:34 APTT 31.7 Sec. (24.2-36.6) 11/07/18 06:34 483.74 ng/mlDDU (0-234) H 11/07/18 02:46 Heparin Anti-Xa Level 0.89 U.I./ml (0.3-0.7) H 11/07/18 14:33 POC ABG pH 7.421 (7.35-7.45) 11/07/18 03:02 POC ABG pCO2 31.1 (35-45) L 11/07/18 03:02 POC ABG pO2 58 (80-105) L 11/07/18 03:02 POC ABG HCO3 20.2 (22-26 mml/L) 11/07/18 03:02 POC ABG Total CO2 21 (23-27mmol/L) 11/07/18 03:02 POC ABG O2 Sat 91 11/07/18 03:02 POC ABG Base Excess -4 ((-2) - (+3)mmol/L) 11/07/18 03:02 21 % 11/07/18 03:02 Sodium 143 mmol/L (137-145) 11/08/18 04:29 Potassium 3.2 mmol/L (3.6-5.0) L D 11/08/18 04:29 Chloride 103.4 mmol/L (98-107) 11/08/18 04:29 Carbon Dioxide 26 mmol/L (22-30) 11/08/18 04:29 17 mmol/L 11/08/18 04:29 BUN 6 mg/dL (7-17) L 11/08/18 04:29 0.6 mg/dL (0.7-1.2) L 11/08/18 04:29 Estimated GFR > 60 ml/min 11/08/18 04:29 10 % 11/08/18 04:29 Glucose 106 mg/dL (65-100) H 11/08/18 04:29 Calcium 8.3 mg/dL (8.4-10.2) L 11/08/18 04:29 272 units/L (30-135) H 11/07/18 02:46 0.047 ng/mL (0.00-0.029) H 11/07/18 06:34 NT-Pro-B Natriuret Pep 6870 pg/mL (0-450) H 11/07/18 02:46 Triglycerides 149 mg/dL (2-149) 11/07/18 02:46 Cholesterol 149 mg/dL (50-199) 11/07/18 02:46 97 mg/dL (50-130) 11/07/18 02:46 38 mg/dL (40-59) L 11/07/18 02:46 3.92 % 11/07/18 02:46 HCG, Qual Negative (Negative) 11/07/18 02:46 Straw (Yellow) 11/07/18 06:45 Clear (Clear) 11/07/18 06:45 5.0 (5.0-7.0) 11/07/18 06:45 Ur Specific [place] 1.004 (1.003-1.030) 11/07/18 06:45 <15 mg/dl mg/dL (Negative) 11/07/18 06:45 Neg mg/dL (Negative) 11/07/18 06:45 Neg mg/dL (Negative) 11/07/18 06:45 Neg (Negative) 11/07/18 06:45 Neg (Negative) 11/07/18 06:45 Neg (Negative) 11/07/18 06:45 < 2.0 mg/dL (<2.0) 11/07/18 06:45 Ur Leukocyte Esterase Neg (Negative) 11/07/18 06:45 < 1.0 /HPF (0.0-6.0) 11/07/18 06:45 < 1.0 /HPF (0.0-6.0) 11/07/18 06:45 U Epithel Cells (Auto) 1.0 /HPF (0-13.0) 11/07/18 06:45 Active Medications - Current Medications Current Medications: Generic Name Dose Route Start Last Admin Trade Name Freq PRN Reason Stop Dose Admin Acetaminophen 650 mg 11/07/18 05:10 Tylenol PO Q4H PRN Pain MILD(1-3)/Fever >100.5/HIGH Albuterol 2.5 mg 11/07/18 05:10 Proventil IH Q3HRT PRN Shortness Of Breath Docusate Sodium 100 mg 11/07/18 10:00 11/07/18 23:00 Colace PO 100 mg BID SEBASTIAN Administration Enoxaparin Sodium 40 mg 11/07/18 22:00 11/07/18 23:00 Lovenox SUB-Q 40 mg QDAY@2200 SEBASTIAN Administration Guaifenesin 200 mg 11/07/18 05:31 Robitussin PO Q4H PRN Cough Hydralazine HCl 10 mg 11/07/18 05:14 Apresoline IV Q4HR PRN Blood Pressure Levofloxacin/Dextrose 500 mg in 100 mls @ 100 mls/hr 11/07/18 10:00 11/07/18 10:43 Levaquin 500mg/100ml IV 100 mls/hr Q24HR SEBASTIAN Administration Protocol Morphine Sulfate 2 mg 11/07/18 05:10 Morphine IV Q4H PRN Pain, Moderate (4-6) Ondansetron HCl 4 mg 11/07/18 05:10 Zofran IV Q8H PRN Nausea And Vomiting Oxycodone/Acetaminophen 1 tab 11/07/18 05:10 11/07/18 17:05 Percocet 5/325 PO 1 tab Q6H PRN Administration Pain, Moderate (4-6) Potassium Chloride 40 meq 11/08/18 09:03 K-Dur PO 11/08/18 09:04 ONCE ONE Sodium Chloride 10 ml 11/07/18 10:00 11/07/18 23:06 Sodium Chloride Flush Syringe 10 Ml IV 10 ml BID SEBASTIAN Administration Sodium Chloride 10 ml 11/07/18 05:10 Sodium Chloride Flush Syringe 10 Ml IV PRN PRN LINE FLUSH Verapamil HCl 80 mg 11/07/18 17:00 11/08/18 05:24 [place] PO 80 mg Q8HR SEBASTIAN Administration
--- NOTE | 2018-11-08 09:32 | Progress Note ---
Assessment and Plan Shortness of breath an echocardiogram shows normal left ventricular systolic function, but mild to moderate left ventricular hypertrophy with systolic anterior motion of the mitral valve, causing a moderate degree of left ventricle outflow gradient, and at least a moderate degree of mitral regurgitation. Hypertension improved with verapamil A BETINA has been recommended for further assessment of the mitral valve pathology but the patient has declined. We will continue medical therapy with verapamil. Once discharged, patient will follow up with [facility] as scheduled November 16 at 10am. Subjective Date of service: 11/08/18 Interval history: Blood pressure is better. Objective Vital Signs Temp Pulse Resp BP BP BP Pulse Ox 11/08/18 05:24 96 H 124/55 11/08/18 03:16 97.6 F 96 H 16 124/55 93 11/07/18 23:15 98.7 F 18 99/41 11/07/18 23:00 104 H 146/77 11/07/18 19:10 110 H 11/07/18 19:00 98.5 F 104 H 18 146/77 146/77 98 11/07/18 17:06 98.5 F 105 H 16 142/85 96 11/07/18 14:12 110 H - Physical Examination General: No Apparent Distress HEENT: Positive: PERRL Neck: Positive: neck supple Cardiac: Positive: Reg Rate and Rhythm Lungs: Positive: Normal Breath Sounds Neuro: Positive: Grossly Intact Abdomen: Positive: Soft Extremities: Absent: edema - Labs and Meds CBC 11/08/18 Range/Units 04:29 WBC 10.1 (4.5-11.0) K/mm3 RBC 4.79 (3.65-5.03) M/mm3 Hgb 13.3 (10.1-14.3) gm/dl Hct 40.6 (30.3-42.9) % Plt Count 218 (140-440) K/mm3 Lymph # 1.8 (1.2-5.4) K/mm3 [place] # 1.2 H (0.0-0.8) K/mm3 Eos # 0.2 (0.0-0.4) K/mm3 Baso # 0.1 (0.0-0.1) K/mm3 Comprehensive Metabolic Panel 11/08/18 Range/Units 04:29 Sodium 143 (137-145) mmol/L Potassium 3.2 L D (3.6-5.0) mmol/L Chloride 103.4 (98-107) mmol/L Carbon Dioxide 26 (22-30) mmol/L BUN 6 L (7-17) mg/dL Creatinine 0.6 L (0.7-1.2) mg/dL Glucose 106 H (65-100) mg/dL Calcium 8.3 L (8.4-10.2) mg/dL
[2018-11-08] MEDS: LEVAQUIN 500MG/100ML 500 MG/100 ML BAG IV SCH (10:12)
[2018-11-08] MEDS: COLACE PO SCH ×2 (10:12→22:41)
[2018-11-08] MEDS: SODIUM CHLORIDE FLUSH SYRINGE 10 ML IV SCH ×2 (10:16→22:42)
[2018-11-08] MEDS: LOVENOX SUB-Q SCH (22:41)
[2018-11-09] MEDS ORDERED: TESSALON PERLES PO SCH (06:00)
[2018-11-09] MEDS: CALAN PO SCH (08:07)
[2018-11-09] MEDS: LEVAQUIN 500MG/100ML 500 MG/100 ML BAG IV SCH (10:08)
[2018-11-09] MEDS: COLACE PO SCH (10:08)
[2018-11-09] MEDS: SODIUM CHLORIDE FLUSH SYRINGE 10 ML IV SCH (10:09)
--- NOTE | 2018-11-09 11:21 | Progress Note ---
Assessment and Plan Shortness of breath an echocardiogram shows normal left ventricular systolic function, but mild to moderate left ventricular hypertrophy with systolic anterior motion of the mitral valve, causing a moderate degree of left ventricle outflow gradient, and at least a moderate degree of mitral regurgitation. A BETINA has been recommended for further assessment of the mitral valve pathology but the patient has declined. Hypertension improved with verapamil Recommend: Continue medical therapy with verapamil. Stable for cardiac discharge. Patient will follow up with [facility] as scheduled November 16 at 10am. Subjective Date of service: 11/09/18 Interval history: No cardiac complaints. Objective Vital Signs Temp Pulse Pulse Resp Resp Resp BP 11/09/18 09:01 98.2 F 95 H 16 127/53 11/09/18 08:07 95 H 125/40 11/09/18 06:18 98.1 F 18 94/37 11/09/18 04:31 98.1 F 11/09/18 04:30 95 H 18 125/40 11/09/18 00:13 98.3 F 11/09/18 00:11 106 H 18 106/52 11/08/18 22:40 105 H 131/56 11/08/18 22:00 18 11/08/18 20:50 114 H 20 11/08/18 20:20 97.6 F 105 H 16 11/08/18 20:10 97.6 F 11/08/18 20:09 105 H 16 131/56 11/08/18 19:49 112 H 11/08/18 16:23 98.1 F 96 H 18 127/61 11/08/18 12:46 97.6 F 18 151/81 BP Pulse Ox 11/09/18 09:01 93 11/09/18 08:07 11/09/18 06:18 11/09/18 04:31 11/09/18 04:30 95 11/09/18 00:13 11/09/18 00:11 91 11/08/18 22:40 11/08/18 22:00 11/08/18 20:50 11/08/18 20:20 131/56 97 11/08/18 20:10 11/08/18 20:09 97 11/08/18 19:49 11/08/18 16:23 97 11/08/18 12:46 - Physical Examination General: No Apparent Distress HEENT: Positive: PERRL Neck: Positive: trachea midline Cardiac: Positive: Reg Rate and Rhythm Lungs: Positive: Normal Breath Sounds Neuro: Positive: Grossly Intact Abdomen: Positive: Soft Extremities: Absent: edema
[2018-11-09 12:54] VITALS: BP 145/66
--- NOTE | 2018-11-09 13:09 | Discharge Summary ---
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 Hospitalization Condition: Fair Hospital course: --Patient and family refused BETINA Cardiology cleared for discharge, follow-up as outpatient for BETINA --Hypokalemia; replace with KCl Monitor electrolytes --Mitral regurgitation; on echocardiogram Cardiology following, recommend BETINA --Acute hypoxic respiratory failure; Oxygen titrated O2 sats more than 90% Possible community, continue IV antibiotics, follow cultures --Sepsis secondary to community-acquired pneumonia; Leukocytosis, tachycardia, tachypnea, pneumonia --Non-ST elevation; nonspecific elevation of cardiac enzymes Identification evaluation noted and appreciated --Elevated d-dimer ; VQ scan negative for PE Lower extremity venous Doppler neg DVT --Morbidly obese; great reduction in medically stable --Mild developmental delay; supportive care --DVT Prophylaxis; heparin drip Closely monitor the patient and adjust management as needed Disposition; discharged in stable Disposition: DC-01 TO HOME OR SELFCARE Time spent for discharge: 32 min Core Measure Documentation - Palliative Care Palliative Care/ Comfort Measures: Not Applicable - Core Measures Any of the following diagnoses?: none Exam - Constitutional Vitals: Temp Pulse Resp BP Pulse Ox 98.6 F 94 H 18 145/66 100 11/09/18 12:24 11/09/18 12:24 11/09/18 12:24 11/09/18 12:24 11/09/18 12:24 General appearance: Present: no acute distress, well-nourished - EENT Eyes: Present: PERRL, EOM intact - Neck Neck: Present: supple, normal ROM - Respiratory Respiratory effort: normal Respiratory: bilateral: diminished, negative: rales, rhonchi, wheezing - Cardiovascular Rhythm: regular Heart Sounds: Present: S1 & S2 - Extremities Extremities: no ischemia, No edema - Abdominal General gastrointestinal: Present: soft, non-tender, non-distended, normal bowel sounds - Integumentary Integumentary: Present: clear, warm - Musculoskeletal Musculoskeletal: strength equal bilaterally - Psychiatric Psychiatric: appropriate mood/affect, cooperative - Neurologic Neurologic: CNII-XII intact, moves all extremities Plan Activity: advance as tolerated, fall precautions Diet: regular Additional Instructions: follow up with [facility] as scheduled at 10am. Follow up with: DANIELA MANNING MD [Staff Physician] - 11/16/18 10:00 am VIANEY CARVAJAL MD [Staff Physician] - 7 Days PRIMARY CARE, [Primary Care Provider] - 3-5 Days Prescriptions: Verapamil [Calan] 80 mg PO Q8HR #90 tablet cefUROXime [Ceftin] 250 mg PO Q12H #14 tablet Benzonatate [Tessalon Perles] 100 mg PO Q8HR #30 capsule
== END 2018-11-09 15:56 | disposition home or self-care (01) | DRG 871 ==
LOC: ED 01:57 → 4A 06:30
PROVIDERS: ADMIT Internal Medicine; ATTEND Internal Medicine
PROC: 4A033R1 Measurement of Arterial Saturation, Peripheral, Percutaneous Approach (ICD-10-PCS; principal; 2018-11-07)
DX: A41.9 Sepsis, unspecified organism (principal); I21.4 Non-ST elevation (NSTEMI) myocardial infarction; J96.01 Acute respiratory failure with hypoxia; J18.9 Pneumonia, unspecified organism; E87.5 Hyperkalemia; F90.9 Attention-deficit hyperactivity disorder, unspecified type; I11.0 Hypertensive heart disease with heart failure; I50.9 Heart failure, unspecified; E66.01 Morbid (severe) obesity due to excess calories; E87.6 Hypokalemia; I34.0 Nonrheumatic mitral (valve) insufficiency; Z71.3 Dietary counseling and surveillance; Z91.018 Allergy to other foods; Z79.899 Other long term (current) drug therapy
CPT/HCPCS: 36415; 71045; 78582; 80048; 80061; 81001; 82550; 82803; 83880; 84484; 84703; 85014; 85018; 85025; 85049; 85379; 85520; 85610; 85730; 93005; 93010; 93306; 93970; 94640; 94644; G0378; A9540; A9558; J1644; J1650; J1940; J1956

== ENCOUNTER 2020-11-07 14:33 | Emergency (ER) | payer MEDICAID ==
--- NOTE | 2020-11-07 15:38 | Event Note ---
ED Screening Note Date of service: 11/07/20 Time: 15:37 ED Screening Note: 24-year-old female patient with history of sepsis and acute hypoxic respiratory failure secondary to community-acquired pneumonia, mitral regurgitation, and pleural effusion presents to the emergency department with complaints of cough for 2 weeks. Patient has not received her COVID-19 vaccination series. No known sick contacts. No current steroid or antibiotic use. General: Awake, appropriately interactive, no acute distress. Neck: Supple. Full range of motion intact. Cardiovascular: Normal peripheral perfusion. Pulmonary: No respiratory distress. Patient is speaking normally without use of accessory muscles. Skin: No apparent rashes or lesions. Neurological: No facial asymmetry. Speech is clear. Follows commands. Patient is alert and oriented. Musculoskeletal: Moves all four extremities spontaneously with normal range of motion. Psych: Cooperative. Appropriate mood and affect. Chest x-ray ordered. Decision to pursue further diagnostic work-up deferred to additional ED providers following complete history and comprehensive physical assessment. I have greeted and performed a focused rapid initial assessment of this patient. A comprehensive ED assessment and evaluation of the patient, analysis of all test results, and completion of the medical decision-making process will be conducted by additional ED providers. This initial assessment/diagnostic orders/clinical plan/treatment(s) is/are subject to change based on patients health status, clinical progression and re-assessment. Further treatment and workup at subsequent clinical provider's discretion. Patient/guardian urged not to elope from the ED as their condition may be serious if not clinically assessed and managed.
--- NOTE | 2020-11-07 16:04 | XRay Report ---
CHEST 2 VIEWS INDICATION / CLINICAL INFORMATION: cough; hx pneumonia/pleural effusion. COMPARISON: 01/25/2020 FINDINGS: SUPPORT DEVICES: None. HEART / MEDIASTINUM: No significant abnormality. LUNGS / PLEURA: No significant pulmonary or pleural abnormality. No pneumothorax. ADDITIONAL FINDINGS: No significant additional findings. IMPRESSION: 1. No acute findings. Signer Name: Carlos Gauthier MD Signed: 11/07/2020 3:59 PM Workstation Name: [id number]
--- NOTE | 2020-11-07 17:40 | Emergency Department Report ---
- General Chief Complaint: Upper Respiratory Infection Stated Complaint: BAD COUGH FOR 2 WEEKS Time Seen by Provider: 11/07/20 17:34 Source: patient Mode of arrival: Ambulatory Limitations: No Limitations - History of Present Illness Initial Comments: 24-year-old female with a past medical history of ADD and mitral regurgitation noted on echocardiogram she had when she was admitted here in September 2018 presents to the ER today with a cough that she has had for the past 2 weeks. She states that she started with a cold 2 weeks ago, majority of her URI symptoms have resolved but she has since had a persistent productive and nonproductive cough. She denies any wheezing, chest pain, shortness of breath, fever or chills. She denies any ill contacts or recent travel. She states that she smokes marijuana but not tobacco. She reports no other symptoms at this time. OFF NOTE: Reviewed patient's admission from October 2018. Patient was admitted for non-STEMI, pneumonia and acute hypoxic respiratory failure she had an echocardiogram which showed an EF of 60 to 65% and moderate degree mitral regurgitation (family refused BETINA at the time). Her D-dimer was elevated at the time but she had a negative V/Q and venous Dopplers were negative for DVT. MD Complaint: cough -: week(s) (2) - Related Data Previous Rx's Medication Instructions Recorded Last Taken Type verapamiL [Calan] 80 mg PO Q8HR #90 tablet 11/09/18 Unknown Rx Albuterol Mdi (or & Nicu Only) 2 puff IH QID PRN #8.5 gram 11/07/20 Unknown Rx [ProAir HFA Inhaler] Benzonatate [Tessalon Perles] 100 mg PO Q8HR PRN #30 capsule 11/07/20 Unknown Rx Fexofenadine HCl [Rekha Allergy] 180 mg PO DAILY #30 tablet 11/07/20 Unknown Rx Mometasone Furoate [Nasonex] 2 spray NS DAILY #1 spray.pump 11/07/20 Unknown Rx Allergies Allergy/AdvReac Type Severity Reaction Status Date / Time strawberry AdvReac Rash Verified 11/07/20 14:48 ED Review of Systems ROS: Stated complaint: BAD COUGH FOR 2 WEEKS Other details as noted in HPI Comment: All other systems reviewed and negative Constitutional: denies: chills, fever Eyes: denies: eye pain, eye discharge, vision change ENT: denies: ear pain, throat pain, dental pain, hearing loss, epistaxis, congestion Respiratory: cough. denies: orthopnea, shortness of breath, SOB with exertion, SOB at rest, wheezing Cardiovascular: denies: chest pain, palpitations, dyspnea on exertion, edema, syncope, paroxysmal nocturnal dyspnea Endocrine: no symptoms reported Gastrointestinal: denies: abdominal pain, nausea, vomiting, diarrhea, constipation, hematemesis, melena, hematochezia Genitourinary: denies: urgency, dysuria, frequency, hematuria, discharge, abnormal menses, dyspareunia Musculoskeletal: denies: back pain, joint swelling, arthralgia Skin: denies: rash, lesions, change in color, change in hair/nails Neurological: denies: headache, weakness, numbness, paresthesias, confusion, abnormal gait, vertigo Psychiatric: denies: anxiety, depression, auditory hallucinations, visual hallucinations, homicidal thoughts, suicidal thoughts Hematological/Lymphatic: denies: easy bleeding, easy bruising ED Past Medical Hx - Past Medical History Previous Medical History?: Yes Hx Psychiatric Treatment: Yes (ADD) Additional medical history: ADHD for which she takes Adderrall - Surgical History Past Surgical History?: No - Social History Smoking Status: Never Smoker Substance Use Type: None - Medications Home Medications: Home Medications Medication Instructions Recorded Confirmed Last Taken Type verapamiL [Calan] 80 mg PO Q8HR #90 tablet 11/09/18 Unknown Rx Albuterol Mdi (or & Nicu Only) 2 puff IH QID PRN #8.5 gram 11/07/20 Unknown Rx [ProAir HFA Inhaler] Benzonatate [Tessalon Perles] 100 mg PO Q8HR PRN #30 capsule 11/07/20 Unknown Rx Fexofenadine HCl [Rekha Allergy] 180 mg PO DAILY #30 tablet 11/07/20 Unknown Rx Mometasone Furoate [Nasonex] 2 spray NS DAILY #1 spray.pump 11/07/20 Unknown Rx ED Physical Exam - General Limitations: No Limitations General appearance: alert, in no apparent distress, obese - Head Head exam: Present: atraumatic, normocephalic, normal inspection - Eye Eye exam: Present: normal appearance, PERRL, EOMI Pupils: Present: normal accommodation - ENT ENT exam: Present: normal exam, mucous membranes moist - Expanded ENT Exam Expanded TM/Canal exam: Effusion: Right TM, Left TM Mouth exam: Present: normal external inspection Teeth exam: Present: normal inspection Throat exam: Positive: normal inspection - Neck Neck exam: Present: normal inspection, full ROM. Absent: meningismus - Respiratory Respiratory exam: Present: normal lung sounds bilaterally. Absent: respiratory distress, wheezes, rales, rhonchi - Cardiovascular Cardiovascular Exam: Present: regular rate, normal rhythm, normal heart sounds - GI/Abdominal GI/Abdominal exam: Present: soft. Absent: distended, tenderness, guarding, rebound, rigid - Neurological Exam Neurological exam: Present: alert, oriented X3, CN II-XII intact, normal gait - Psychiatric Psychiatric exam: Present: normal affect, normal mood - Skin Skin exam: Present: intact ED Course Vital Signs 11/07/20 11/07/20 14:48 18:17 Temperature 98.3 F 98.6 F Pulse Rate 76 76 Respiratory 18 18 Rate Blood Pressure 120/56 Blood Pressure 120/60 [Left] O2 Sat by Pulse 99 100 Oximetry ED Medical Decision Making - Radiology Data Radiology results: report reviewed Patient: GOYO PEREZ MR# : [id number] : 1995 Acct:[id number] Age/Sex: 24 / F ADM Date: 11/07/20 Loc: ED Attending Dr: Ordering Physician: DALI HERNANDEZ Date of Service: 11/07/20 Procedure(s): XR chest routine 2V Accession Number(s): [id number] cc: DALI HERNANDEZ Fluoro Time In Minutes: CHEST 2 VIEWS INDICATION / CLINICAL INFORMATION: cough; hx pneumonia/pleural effusion. COMPARISON: 01/25/2020 FINDINGS: SUPPORT DEVICES: None. HEART / MEDIASTINUM: No significant abnormality. LUNGS / PLEURA: No significant pulmonary or pleural abnormality. No pneumothorax. ADDITIONAL FINDINGS: No significant additional findings. IMPRESSION: 1. No acute findings. Signer Name: Carlos Gauthier MD Signed: 11/07/2020 3:59 PM Workstation Name: [id number] Transcribed By: VIGNESH Dictated By: Carlos Gauthier MD Electronically Authenticated By: Carlos Gauthier MD Signed Date/Time: 11/07/201558 DD/ 58 TD/TT: - Medical Decision Making cxr shows nothing acute. The patient is resting comfortably, is alert and in no distress. The patient has normal mental status and is neurologically intact. The patient appears well and there is no significant dehydration. There is no respiratory distress and no signs of systemic toxicity. Her history, exam, diagnostic testing and current condition do not demonstrate an infectious process such as meningitis, severe pneumonia, ARDS, retropharyngeal abscess, epiglottitis, sepsis or other serious bacterial infection requiring further testing, treatment, consultation or admission at this time. Her vital signs have been stable. Discussed xray results, suspected dx and tx plan with pt and mom. The patient's condition is stable and appropriate for discharge. The patient will pursue further outpatient evaluation with the primary care physician or other designated. Critical care attestation.: If time is entered above; I have spent that time in minutes in the direct care of this critically ill patient, excluding procedure time. ED Disposition Clinical Impression: Viral URI with cough Disposition: - TO HOME OR SELFCARE Is pt being admited?: No Does the pt Need Aspirin: No Condition: Stable Instructions: Cough, Adult, Hfut-uo-Wiac, Viral Respiratory Infection, Toid-Xt-Kide Additional Instructions: Take the Tessalon perles, the rekha and use nasonex as prescribed. I recommend following up with PCP in next 2-3 days. REturn to ED if symptoms changes or worsens in anyway. Prescriptions: Fexofenadine HCl [Rekha Allergy] 180 mg PO DAILY #30 tablet Mometasone Furoate [Nasonex] 2 spray NS DAILY #1 spray.pump Albuterol Mdi (or & Nicu Only) [ProAir HFA Inhaler] 2 puff IH QID PRN #8.5 gram PRN Reason: Shortness Of Breath Benzonatate [Tessalon Perles] 100 mg PO Q8HR PRN #30 capsule PRN Reason: Cough Referrals: PRIMARY CARE, [Primary Care Provider] - 3-5 Days Time of Disposition: 17:52
[2020-11-07 18:18] VITALS: BP 120/60
== END 2020-11-07 19:03 | disposition home or self-care (01) ==
LOC: ED 14:33
DX: J06.9 Acute upper respiratory infection, unspecified (principal); B97.89 Other viral agents as the cause of diseases classified elsewhere; R05 Cough; Z79.899 Other long term (current) drug therapy; Z91.018 Allergy to other foods
CPT/HCPCS: 71046

== ENCOUNTER 2020-12-21 19:52 | Emergency (ER) | payer MEDICAID ==
--- NOTE | 2020-12-21 21:35 | Emergency Department Report ---
ED General Adult HPI - General Chief complaint: Sore Throat Stated complaint: SORETHROAT Time Seen by Provider: 12/21/20 21:15 Source: patient Mode of arrival: Ambulatory Limitations: No Limitations - History of Present Illness Initial comments: 24-year-old female patient presents to emergency department with complaints of sore throat, ear pain, and urinary frequency for 2 days. No known sick contacts. No current steroid or antibiotic use. No recent travel. Unsure if . Denies fever, chills, cough, sneezing, shortness of breath, dysphagia , headache, neck stiffness. Denies all other complaints at this time. - Related Data Previous Rx's Medication Instructions Recorded Last Taken Type verapamiL [Calan] 80 mg PO Q8HR #90 tablet 11/09/18 Unknown Rx Albuterol Mdi (or & Nicu Only) 2 puff IH QID PRN #8.5 gram 11/07/20 Unknown Rx [ProAir HFA Inhaler] Benzonatate [Tessalon Perles] 100 mg PO Q8HR PRN #30 capsule 11/07/20 Unknown Rx Fexofenadine HCl [Dara Allergy] 180 mg PO DAILY #30 tablet 11/07/20 Unknown Rx Mometasone Furoate [Nasonex] 2 spray NS DAILY #1 spray.pump 11/07/20 Unknown Rx Nystas/Diphen/Xyl Visc/Mylanta 30 ml MM Q4H #1 bottle 12/22/20 Unknown Rx [Magic Mouthwash] Sulfamethoxazole/Trimethoprim 1 each PO BID 5 Days tablet 12/22/20 Unknown Rx [Bactrim DS TAB] Allergies Allergy/AdvReac Type Severity Reaction Status Date / Time strawberry AdvReac Rash Verified 11/07/20 14:48 ED Review of Systems ROS: Stated complaint: SORETHROAT Other details as noted in HPI Other: GENERAL: Negative for fever, chills, weight change, anorexia, fatigue. ENT: Positive for sore throat and ear pain. CARDIOVASCULAR: Negative for chest pain, palpitations, lower extremity swelling. PULMONARY: Negative for cough, dyspnea, wheezing, orthopnea, cyanosis. GASTROINTESTINAL: Negative for abdominal pain, nausea, vomiting, diarrhea, constipation. GENITOURINARY: Positive for urinary frequency. MUSCULOSKELETAL: Negative for joint pain, joint swelling, myalgias, back pain, neck pain. NEUROLOGICAL: Negative for headache, seizure, syncope, paresthesias, weakness. INTEGUMENTARY: Negative for erythema, rash, diaphoresis, laceration, ecchymosis. HEMATOLOGICAL: Negative for hemoptysis, hematemesis, hematochezia, hematuria. PSYCHIATRIC: Negative for hallucinations, suicidal ideation, homicidal ideation, anxiety, depression. ED Past Medical Hx - Past Medical History Previous Medical History?: Yes Hx Psychiatric Treatment: Yes (ADD) Additional medical history: ADHD for which she takes Adderrall - Surgical History Past Surgical History?: No - Social History Smoking Status: Never Smoker Substance Use Type: None - Medications Home Medications: Home Medications Medication Instructions Recorded Confirmed Last Taken Type verapamiL [Calan] 80 mg PO Q8HR #90 tablet 11/09/18 Unknown Rx Albuterol Mdi (or & Nicu Only) 2 puff IH QID PRN #8.5 gram 11/07/20 Unknown Rx [ProAir HFA Inhaler] Benzonatate [Tessalon Perles] 100 mg PO Q8HR PRN #30 capsule 11/07/20 Unknown Rx Fexofenadine HCl [Dara Allergy] 180 mg PO DAILY #30 tablet 11/07/20 Unknown Rx Mometasone Furoate [Nasonex] 2 spray NS DAILY #1 spray.pump 11/07/20 Unknown Rx Nystas/Diphen/Xyl Visc/Mylanta 30 ml MM Q4H #1 bottle 12/22/20 Unknown Rx [Magic Mouthwash] Sulfamethoxazole/Trimethoprim 1 each PO BID 5 Days tablet 12/22/20 Unknown Rx [Bactrim DS TAB] ED Physical Exam - General Limitations: No Limitations - Other Other exam information: General: Awake and alert. No acute distress. Head: Atraumatic, normocephalic. Eyes: EOMI. Pupils are equal and round. Normal sclera and conjunctiva. ENT: Oral mucosa is moist. Pharyngeal erythema with bilateral exudate. Uvula is midline and nonedematous. No trismus. Patient is speaking in full sentences and handling her secretions without difficulty. No hoarseness. Neck: Supple. No lymphadenopathy. Pulmonary: No respiratory distress. Clear to auscultation bilaterally. Cardiac: Tachycardic. Pulses are palpable and equal bilaterally. No lower extremity cyanosis or edema. Skin: Warm and dry. No rashes. Abdomen: Soft, non-tender, non-protuberant. No guarding, rigidity, or rebound. Bowel sounds are normal. No organomegaly or masses noted. Back: Normal alignment. No CVA tenderness. Extremities: Symmetrical. Full range of motion intact. Neurological: Alert and oriented, appropriately interactive, no focal deficits. Psych: Cooperative. Appropriate mood and affect. Speech is evenly metered. Thoughts are logically construed. ED Course Vital Signs 12/21/20 20:25 Temperature 98.3 F Pulse Rate 101 H Respiratory 18 Rate Blood Pressure 132/65 O2 Sat by Pulse 100 Oximetry ED Medical Decision Making - Medical Decision Making Differential diagnosis including but not limited to: strep pharyngitis, viral pharyngitis, peritonsillar abscess, epiglottitis, Rito's angina, mononucleosis, otitis media, allergic rhinitis, urinary tract infection, On reevaluation, patient remains stable. Rapid strep test is negative. Confirmatory culture is pending. test is negative. Urinalysis is consistent with UTI. Patient is afebrile, no nausea, no vomiting, no CVA tenderness to suggest pyelonephritis. No abdominal pain, pelvic pain, or vaginal discharge to suggest pelvic inflammatory disease. Patient will be discharged home with antibiotics for uncomplicated UTI as well as appropriate symptomatic treatment for presumed viral pharyngitis. No clinical evidence of airway obstruction/systemic bacterial illness warranting further diagnostic work-up on an emergent basis at this time. Referred to primary care provider for close outpatient follow-up. Patient expressed understanding and is agreeable to plan of care. Disease transmission precautions discussed. Strict return precautions provided. Repeat exam is unremarkable and benign. History, exam, diagnostic testing, and current condition do not suggest worrisome pathology to warrant further testing, continued ED treatment, admission, or surgical evaluation at this point. Given the low probability of a significant medical illness, it would be more likely to result in harm than benefit to perform further testing at this stage. Discussed findings, presumptive diagnosis, need for follow-up and specific signs/symptoms that should prompt immediate return to the emergency department. Instructions were explained in detail to the patient in addition to giving written discharge information. Patient expressed understanding and was given the opportunity to ask questions, all of which were satisfactorily answered prior to discharge home. Critical care attestation.: If time is entered above; I have spent that time in minutes in the direct care of this critically ill patient, excluding procedure time. ED Disposition Clinical Impression: Viral pharyngitis Urinary tract infection Qualifiers: Urinary tract infection type: site unspecified Hematuria presence: with allyn degroot Qualified Code(s): N39.0 - Urinary tract infection, site not specified; R31.9 - Hematuria, unspecified Disposition: HOME / SELF CARE / HOMELESS Is pt being admited?: No Does the pt Need Aspirin: No Condition: Stable Instructions: Pharyngitis, Urinary Tract Infection, Adult, [id number] Additional Instructions: Take Tylenol every 4 hours and Motrin every 8 hours as needed for pain. Take Bactrim with food as directed. Use Magic Mouthwash as needed for sore throat. Rest. Drink plenty of fluids. Wash hands frequently to prevent disease transmission. Do not share food or drinks with others. Follow-up with primary care provider this week. Call Thursday to schedule an appointment. See referral information below. Return to the emergency department immediately for new or worsening symptoms. Prescriptions: Sulfamethoxazole/Trimethoprim [Bactrim DS TAB] 1 each PO BID 5 Days tablet Nystas/Diphen/Xyl Visc/Mylanta [Magic Mouthwash] 30 ml MM Q4H #1 bottle Referrals: TIERA FRANCIS MD [Staff Physician] - 3-5 Days [facility] [Provider Group] - 3-5 Days Forms: Work/School Release Form(ED) Time of Disposition: 00:34
[2020-12-22 00:15] LABS: Bilirubin,Urine NEG (Negative); Blood,Urine SM (Negative); Color,Urine Yellow (Yellow); Mucus,Urine 2+ /HPF; Urobilinogen,Urine < 2.0 mg/dL (<2.0)
[2020-12-22 00:20] LABS: HCG Qualitative,Urine Negative (Negative)
[2020-12-22 00:56] VITALS: BP 148/73
== END 2020-12-22 01:00 | disposition home or self-care (01) ==
LOC: ED 19:52
DX: J02.9 Acute pharyngitis, unspecified (principal); N39.0 Urinary tract infection, site not specified; R31.9 Hematuria, unspecified
CPT/HCPCS: 81001; 81025; 87086; 87116; 87430; 99283